=== PATIENT | female | born 1955 | race Hispanic/Latino ===

== ENCOUNTER → 2019-04-01 | Outpatient (CLI) | payer MEDICARE ==
--- NOTE | 2019-04-01 16:51 | Diagnostic Imaging Report ---
EXAMINATION: THORACIC SPINE 2VW INDICATION: Thoracic spine pain. COMPARISON: None FINDINGS: No compression fracture. Vertebral body heights are maintained. Alignment is anatomic. No substantial degenerative change. IMPRESSION: No compression fracture. Anatomic alignment. Signed by: Tavia Glynn MD on 04/01/2019 4:48 PM
== END ==
LOC: RAD 16:12
PROVIDERS: ATTEND Student in an Organized Health Care Education/Training Program
DX: M54.6 Pain in thoracic spine (principal)
CPT/HCPCS: 72070

== ENCOUNTER 2021-08-08 11:00 | Outpatient (RCR) | payer MEDICARE | END 2021-08-10 | LOC: PT 11:00 | PROVIDERS: ATTEND Podiatrist Foot & Ankle Surgery | DX: M72.2 Plantar fascial fibromatosis (principal); G60.9 Hereditary and idiopathic neuropathy, unspecified ==

== ENCOUNTER 2021-08-31 09:00 | Outpatient (RCR) | payer MEDICARE | END 2021-09-09 | LOC: PT 09:00 | PROVIDERS: ATTEND Podiatrist Foot & Ankle Surgery | DX: M72.2 Plantar fascial fibromatosis (principal); G60.9 Hereditary and idiopathic neuropathy, unspecified ==